=== PATIENT | male | born 1990 | race Caucasian/White ===

== ENCOUNTER 2016-10-22 11:59 | Emergency (ER) | payer OTHER ==
[~2016-10-22] VITALS: Ht 180.3 cm; Wt 79.4 kg
[2016-10-22 12:24] VITALS: BP 126/76
--- NOTE | 2016-10-22 12:25 | RAD ---
Left wrist radiographs History: Pain from fall previous day, correlating with the. Comparison: None. Findings: PA, lateral, and oblique views of the left wrist. Nondisplaced, obliquely oriented lucency is seen involving the distal aspect of the radius extending to the radiocarpal articular surface, compatible with acute, nondisplaced putty glazer fracture. Impression: Acute, nondisplaced distal radial fracture.
[2016-10-22] MEDS ORDERED: DIPHTH,PERTUSS(ACELL),TET TOX 0.5 ML DISP.SYRIN. VAX IM ONE (13:00)
[2016-10-22] MEDS ORDERED: NAPR500T8 PO (13:17)
[2016-10-22] MEDS ORDERED: HYDR-971 PO (13:17)
--- NOTE | 2016-10-22 13:17 | PHYS DOC ---
Past Medical History Past Medical History: Other Additional Past Medical Histor: BRAIN TUMOR Past Surgical History: Other Additional Past Surgical Histo: BRAIN TUMOR REMOVAL Alcohol Use: Rarely Drug Use: Marijuana Adult General Chief Complaint Chief Complaint: WRIST PAIN HPI HPI Patient is a 25 year old male with no significant medical history who presents today with left wrist pain, lateral aspect rated at 4 out of 10 described as sharp worse on weightbearing and movement that began yesterday after he fell roller blading. Patient denies any loss of consciousness. Denies hitting his head on the ground Review of Systems Review of Systems Constitutional: Denies fever or chills [] Eyes: Denies change in visual acuity, redness, or eye pain [] Musculoskeletal: Left wrist pain Integument: Denies rash or skin lesions [] Neurologic: Denies headache, focal weakness or sensory changes [] Endocrine: Denies polyuria or polydipsia [] Current Medications Current Medications Current Medications Medications (Trade) Dose Ordered Sig/Mabel Start Time Stop Time Status Last Admin Dose Admin Diphtheria/ Tetanus/Acell Pertussis (Boostrix) 0.5 ml ONCE ONCE 10/22/16 13:00 10/22/16 13:01 DC 10/22/16 13:03 0.5 ML Allergies Allergies Allergies Coded Allergies Type Severity Reaction Last Updated Verified Penicillins Allergy Unknown Anaphylaxis 10/22/16 Yes Physical Exam Physical Exam Constitutional: Well developed, well nourished, no acute distress, non-toxic appearance. [] HENT: Normocephalic, atraumatic, bilateral external ears normal, oropharynx moist, no oral exudates, nose normal. [] Skin: Warm, dry, no erythema, no rash. [] Back: No tenderness, no CVA tenderness. [] Extremities: Left wrist with mild soft tissue swelling. Bruising noted on the left thumb. No palpable tenderness or pain. Tenderness on palpation of the left lateral wrist. No scaphoid pain or tenderness on exam. Patient unable to dorsiflex the left forearm. Limited range of motion to the left wrist especially flexion and extension. +2 left radial pulse. Cap refill less than 2 seconds the left upper extremity. Sensation intact left upper extremity. Neurologic: Alert and oriented X 3, normal motor function, normal sensory function, no focal deficits noted. [] Psychologic: Affect normal, judgement normal, mood normal. [] Current Patient Data Vital Signs Vital Signs Date Time Temp Pulse Resp B/P (MAP) Pulse Ox O2 Delivery O2 Flow Rate FiO2 10/22/16 12:24 97.6 77 16 97 Room Air 97.6 EKG EKG [] Radiology/Procedures Radiology/Procedures []PROCEDURE: WRIST 3V LEFT Left wrist radiographs History: Pain from fall previous day, correlating with the. Comparison: None. Findings: PA, lateral, and oblique views of the left wrist. Nondisplaced, obliquely oriented lucency is seen involving the distal aspect of the radius extending to the radiocarpal articular surface, compatible with acute, nondisplaced quill layer fracture. Impression: Acute, nondisplaced distal radial fracture. DICTATED and SIGNED BY: LUCIO ABARCA MD DATE: 10/22/16 1220 CC: CHRIS HANNAH APRN; NO PCP; NON,STAFF ~ Course & Med Decision Making Course & Med Decision Making Pertinent Labs and Imaging studies reviewed. (See chart for details) Patient is in the ED with left wrist pain after falling yesterday. Left wrist x- rays interpreted by radiologist were noted for acute nondisplaced distal radial fracture. Patient was placed in a sugar tong by the geotechnical operating engineer, neurovascular exam done by me is normal, cap refill less than 2 seconds. Ice elevation encouraged. Provided orthopedic doctor for follow-up in one day. Dragon Disclaimer Dragon Disclaimer This electronic medical record was generated, in whole or in part, using a voice recognition dictation system. Departure Departure Impression: Primary Impression: Radial head fracture, closed Additional Impression: Fall Disposition: 01 HOME, SELF-CARE Condition: STABLE Referrals: NO PCP (PCP) GEOVANNY STYLES MD call his office today and set up a follow-up appointment Patient Instructions: Fall Prevention and Home Safety, Radial Fracture Additional Instructions: You were seen for left wrist fracture. Ice and elevate the extremity. Call the orthopedic doctor provided today and set up a follow-up appointment. Take the prescribed pain medicines as needed. Scripts Naproxen (NAPROXEN) 500 Mg Tablet. 1 TAB PO BID, #60 TAB 1 Refill Prov: CHRIS HANNAH APRN 10/22/16 Hydrocodone/Apap 5-325 (NORCO 5-325 TABLET) 1 Each Tablet 1-2 TAB PO Q4-6HRS, #20 TAB Prov: CHRIS HANNAH APRN 10/22/16 Problem Qualifiers Primary Impression: Radial head fracture, closed Encounter type: initial encounter Fracture alignment: nondisplaced Laterality: left Qualified Codes: S52.125A - Nondisplaced fracture of head of left radius, initial encounter for closed fracture Additional Impression: Fall Encounter type: initial encounter Qualified Codes: W19.XXXA - Unspecified fall, initial encounter CHRIS HANNAH COOK FROZEN DESSERT October 22, 2016 13:17
[2016-10-22] MEDS ORDERED: NAPROXEN 500 MG TABLET PO STA (13:21)
[2016-10-22] MEDS ORDERED: HYDROcodone/APAP 5/325MG 1 TAB TABLET PO ONE (13:45)
== END 2016-10-22 13:37 | disposition home or self-care (01) ==
LOC: ER 11:59
DX: S52.125A Nondisplaced fracture of head of left radius, initial encounter for closed fracture (principal); F12.10 Cannabis abuse, uncomplicated; Z88.0 Allergy status to penicillin; W18.39XA Other fall on same level, initial encounter; Y93.89 Activity, other specified; Y92.89 Other specified places as the place of occurrence of the external cause; Y99.8 Other external cause status
CPT/HCPCS: 29125; 73110; 90471; 90715; 99284-25